=== PATIENT | male | born 1945 | race Caucasian/White ===

== ENCOUNTER 2020-10-09 07:42 | Outpatient (CLI) | payer MEDICARE, SELFPAY ==
--- NOTE | ~2020-10-09 | PE_ITS ---
EXAMINATION: PET skull to mid thigh DATE: 10/09/2020 10:00 INDICATION: Solitary nodule of lung. TECHNIQUE: Blood glucose level was 67 mg/dL. 9.125 mCi of 18-fluorodeoxyglucose (18-FDG) was administ ered i.v. Low dose computed tomography (CT) images were acquired from the base of the brain to the pr oximal thighs for attenuation correction and anatomic localization. Automated exposure control was em ployed. Dose-length product (DLP) was 755 mGy-cm. Positron emission tomography (PET) images were acqu ired in the same distribution. COMPARISON: None FINDINGS: Head/neck: There is mucosal thickening in the paranasal sinuses. There are no pathologically enlarged lymph nodes. There is increased activity in the muscles of mastication, tongue, and neck muscles and glottis without CT correlate, likely physiologic. Chest: There is mild emphysema. There is a 2.1 cm nodule in right lower lobe with maximum SUV of 1.9. There is mild peripheral scarring in right middle lobe, lingula, and left lower lobe. No pleural eff usion. There is pleural thickening on the left. The heart size is normal. There are coronary artery c alcifications. There are calcifications of the aortic valve. No pericardial effusion. There is bilate ral gynecomastia. There is a small sliding hiatal hernia. There are areas of increased activity in th e musculature without CT correlate, likely physiologic. There are bridging endplate osteophytes at mu ltiple levels in the spine, consistent with diffuse idiopathic skeletal hyperostosis (DISH). Abdomen/pelvis/proximal thighs: The liver, gallbladder, spleen, pancreas, adrenal glands, and kidneys are normal. There are no dilated loops of bowel. There are bilateral inguinal hernias containing fat . The right inguinal hernia also includes a portion of the bladder. There is bladder wall thickening, likely secondary to chronic outlet obstruction from the mildly enlarged prostate. There are no patho logically enlarged lymph nodes. There is no free intraperitoneal fluid. There is subcutaneous fat str anding in anterior abdominal wall with increased activity, likely inflammation. There is severe lumba r spondylosis. IMPRESSION: 1. 2.1 cm nodule in right lung lower lobe with maximum SUV of 1.9, which is indeterminate for maligna ncy. CT-guided biopsy is recommended. Reviewed, dictated and finalized at location A. FACTURING HELPER IMPRESSION: 1. 2.1 cm nodule in right lung lower lobe with maximum SUV of 1.9, which is ind eterminate for malignancy. CT-guided biopsy is recommended.
[2020-10-09 08:24] LABS: Glucose Point of Care 67 (65-105)
== END 2020-10-09 07:43 | disposition home or self-care (01) ==
PROVIDERS: PCP Internal Medicine; Visit Provider Internal Medicine
DX: R91.1 Solitary pulmonary nodule (principal)
CPT/HCPCS: 78815; A9552

== ENCOUNTER 2020-10-16 02:35 | Outpatient (CLI) | payer MEDICARE, SELFPAY ==
[2020-10-16 19:16] LABS: SARS-CoV-2 RNA PCR Negative
== END 2020-10-16 02:36 | disposition home or self-care (01) ==
LOC: ANHCOVIDDT 02:35
PROVIDERS: PCP Internal Medicine; Visit Provider Internal Medicine
DX: Z01.818 Encounter for other preprocedural examination (principal); Z20.828 Contact with and (suspected) exposure to other viral communicable diseases
CPT/HCPCS: 87635; C9803; U0003

== ENCOUNTER 2020-10-19 07:40 | Outpatient (CLI) | payer MEDICARE, SELFPAY ==
[2020-10-16 14:32] VITALS: BMI 25.1
[2020-10-19] VITALS (11 sets, daily range): BP systolic 92–138; BP diastolic 59–83; PULSE 84–95; RESP 16–20; O2SAT 94–100
--- NOTE | ~2020-10-19 | CT_ITS ---
. EXAMINATION: CT biopsy lung DATE: 10/19/2020 11:16 INDICATION: Solitary pulmonary nodule. TECHNIQUE: The procedure including the risks, benefits, and alternatives and possibility of chest tub e placement were discussed with the patient. Risks discussed included infection, approximately 1/20 r isk of symptomatic hemorrhage beyond mild hemoptysis, approximately 1/3 risk of pneumothorax, approxi mately 1/10 risk of pneumothorax severe enough to warrant chest tube placement, and rarely . The patient understood the risks and agreed to proceed. The patient was placed prone. The skin overlyin g the right lung was prepped and draped in sterile fashion. Anesthetic was administered with 1% lido scout subcutaneously. A 19 gauge outer needle was advanced under CT guidance to the lesion of intere st. A 20 gauge core biopsy needle was then used to obtain 3 core biopsy specimens. The needle was rem nina and the entry site was cleaned and dressed. The mA was adjusted according to patient size. Itera tive reconstruction technique was employed. The dose-length product was 110.08 mGy-cm. There were no immediate complications. FINDINGS: CT images demonstrate the outer needle tip adjacent to a 2.2 cm nodule in right lung lower lobe. IMPRESSION: 1. CT-guided core needle biopsy of a right lung lower lobe nodule. Reviewed, dictated and finalized at location A. TIER
--- NOTE | ~2020-10-19 | XR_ITS ---
EXAMINATION: XR chest 1V portable DATE: 10/19/2020 12:17 INDICATION: Right lung nodule status post percutaneous biopsy. TECHNIQUE: A single frontal view of the chest was obtained. COMPARISON: Chest single view at 11:17 AM FINDINGS: There is mild atelectasis in right lower lung zone. No pleural effusion or pneumothorax. Th e heart size is normal. Median sternotomy wires and mediastinal surgical clips are seen, likely from prior coronary artery bypass grafting. IMPRESSION: 1. Mild atelectasis in right lower lung zone with interval improvement. Reviewed, dictated and finalized at location A. ER CHECKER
--- NOTE | ~2020-10-19 | XR_ITS ---
EXAMINATION: XR chest 1V DATE: 10/19/2020 11:21 INDICATION: Right lung nodule status post percutaneous biopsy. TECHNIQUE: A single frontal view of the chest was obtained. COMPARISON: PET/CT 10/09/2020 FINDINGS: There are airspace opacities in right lower lung zone. No pleural effusion or pneumothorax. The heart size is normal. Median sternotomy wires and mediastinal surgical clips are seen, likely fr om prior coronary artery bypass grafting. IMPRESSION: 1. Airspace opacities in right lower lung zone, likely atelectasis and hemorrhage. Reviewed, dictated and finalized at location A. TYPE OPERATOR IMPRESSION: 1. Airspace opacities in right lower lung zone, likely atelectasis and hemorrha ge.
--- NOTE | ~2020-10-19 | XR_ITS ---
EXAMINATION: XR chest 1V portable DATE: 10/19/2020 14:23 INDICATION: Right lung nodule status post percutaneous biopsy. TECHNIQUE: A single frontal view of the chest was obtained. COMPARISON: Chest single view at 12:06 PM FINDINGS: There is a nodule in right lower lobe. No pleural effusion or pneumothorax. The heart size is normal. Median sternotomy wires and mediastinal surgical clips are seen, likely from prior coronar y artery bypass grafting. IMPRESSION: 1. Right lower lobe nodule suspicious for primary bronchogenic carcinoma. Reviewed, dictated and finalized at location A. PHYSICIAN ASST
[2020-10-19 08:24] LABS: Platelet Count Result 301 k/mm3 (150-375)
[2020-10-19 08:41] LABS: INR 1.1; Prothrombin Time 14.6 Seconds (11.1-14.7)
== END 2020-10-19 14:35 | disposition home or self-care (01) ==
PROVIDERS: Radiology Diagnostic Radiology; PCP Internal Medicine; Visit Provider Internal Medicine
DX: C34.31 Malignant neoplasm of lower lobe, right bronchus or lung (principal); Z51.81 Encounter for therapeutic drug level monitoring; Z79.899 Other long term (current) drug therapy
CPT/HCPCS: 32405; 36415; 71045; 77012; 85049; 85610; 88305; 88342